=== PATIENT | female | born 1980 | race Caucasian/White ===

== ENCOUNTER 2018-05-22 11:19 | Emergency (ER) | payer MEDICAID, SELFPAY ==
[2018-05-22] MEDS ORDERED: predniSONE 20 MG TAB ONE (11:44)
[2018-05-22] MEDS ORDERED: HYDROcodone/Acetaminophen 10/325 mg Tablet ONE (11:44)
[2018-05-22] MEDS ORDERED: Azithromycin 250 MG TAB ONE (11:44)
== END 2018-05-22 11:50 | disposition home or self-care (01) ==
LOC: MADERS 11:19
DX: K02.9 Dental caries, unspecified (principal); I88.9 Nonspecific lymphadenitis, unspecified; F17.210 Nicotine dependence, cigarettes, uncomplicated
CPT/HCPCS: 99283; J7506